=== PATIENT | female | born 1950 | race African-American/Black ===

== ENCOUNTER 2023-07-16 18:35 | Inpatient (IN) | payer MEDICARE ==
[~2023-07-16] VITALS: Ht 162.6 cm; Wt 62.3 kg
[2023-07-16 18:41] VITALS: O2SAT 97
[2023-07-16 19:31] LABS: CHLORIDE 92 mEq/L (98-107); POTASSIUM 5.3 mEq/L (3.5-5.1); SODIUM 131 mEq/L (136-145)
[2023-07-16 19:32] LABS: CALCIUM 9.2 mg/dL (8.7-10.4); CARBON DIOXIDE 28 mEq/L (21-32)
[2023-07-16 19:33] LABS: BASOPHILS % 0.6 % (0.0-2.0); DIFFERENTIAL COMMENT 0; HEMATOCRIT. 35.1 % (36.0-48.0); HEMOGLOBIN. 11.6 g/dL (12.0-16.0); LYMPHOCYTES % 26.7 % (20.0-50.0); MEAN CORPUSCULAR HGB CONC 33.1 g/dL (31.0-37.0); MEAN CORPUSCULAR VOLUME 93.6 fL (81.0-99.0); MEAN PLATELET VOLUME 7.6 fl (7.4-10.4); MONOCYTES % 13.8 % (2.0-8.0); NEUTROPHILS % 53.9 % (40.0-76.0); PLATELET 160 x1000/uL (130-400); RED BLOOD CELL COUNT 3.75 mill/uL (4.2-5.4); RED CELL DISTRIBUTION WIDTH 20.4 % (11.6-14.6); WHITE BLOOD COUNT 3.7 x1000/uL (4.5-11.0)
[2023-07-16 19:37] LABS: GLUCOSE 108 mg/dL (70-105); UREA NITROGEN BLOOD 47 mg/dL (9-23)
[2023-07-16 19:38] LABS: TROPONIN I HIGH SENSITIVITY 17 ng/L (3.0-34)
[2023-07-16 19:39] LABS: CREATININE 7.5 mg/dL (0.6-1.0)
[2023-07-16] MEDS: ACETAMINOPHEN 325MG TABLET PO ONE (23:13)
[2023-07-17] VITALS (11 sets, daily range): BP systolic 133–174; BP diastolic 58–81; PULSE 58–63; RESP 12–26; TEMP 98.2–98.4
[2023-07-17] MEDS: HYDRALAZINE 20MG/ML VIAL IV ONE (00:01)
[2023-07-17] MEDS ORDERED: IPRATROPIUM/ALBUTEROL 0.5-3(2.5)MG/3ML NEB HHN PRN (07:30)
[2023-07-17] MEDS ORDERED: DOCUSATE SODIUM 100MG CAPSULE PO PRN (07:30)
[2023-07-17] MEDS: PANTOPRAZOLE 40MG DR TABLET PO SCH (07:42)
[2023-07-17] MEDS: SEVELAMER CARBONATE 800 MG TABLET PO SCH (08:09)
[2023-07-17] MEDS: FOLIC ACID/VITAMIN B COMP W-C TABLET PO SCH (08:09)
[2023-07-17 08:17] LABS: HEPATITIS B SURFACE ANTIGEN NEGATIVE (Negative)
[2023-07-17] MEDS ORDERED: DEXTROSE 50% WATER 50ML SYRINGE IV PRN (08:30)
[2023-07-17] MEDS ORDERED: SERT25TA74 PO (08:35)
[2023-07-17] MEDS ORDERED: AMLO10TA80 PO (08:35)
[2023-07-17] MEDS ORDERED: CARV12.545 PO (08:35)
[2023-07-17 08:37] LABS: HEPATITIS A AB IGM NEGATIVE (Negative)
[2023-07-17 08:38] LABS: HEPATITIS B CORE AB IGM NEGATIVE (Negative); HEPATITIS C AB NON REACTIVE (Neg) (Negative)
[2023-07-17] MEDS ORDERED: SODIUM POLYSTYRENE SULFONATE 15 G/60 ML BOT PO ONE (08:45)
[2023-07-17] MEDS: ONDANSETRON HCL 4MG/2ML INJ IV NR (08:45)
[2023-07-17] MEDS ORDERED: AMLODIPINE 5MG TABLET PO SCH (09:00)
[2023-07-17] MEDS: CARVEDILOL 12.5MG TABLET PO SCH (09:09)
[2023-07-17] MEDS: AMLODIPINE 10MG TABLET PO SCH (09:09)
[2023-07-17] MEDS: SERTRALINE HCL 25MG TABLET PO SCH (09:09)
[2023-07-17] MEDS: SODIUM ZIRCONIUM CYCLOSILICATE 10GM/PACKET PO NR (09:30)
[2023-07-17] MEDS: INSULIN LISPRO 100 UNITS/ML SUBCUT SCH (12:15)
[2023-07-17] MEDS: BLOOD SUGAR DIAGNOSTIC STRIP TEST SCH (12:25)
[2023-07-17] MEDS: HYDRALAZINE 20MG/ML VIAL IV PRN (18:39)
[2023-07-17] MEDS: ACETAMINOPHEN 325MG TABLET PO PRN (21:07)
[2023-07-17] MEDS: ONDANSETRON HCL 4MG/2ML INJ IV PRN (21:07)
[2023-07-18] VITALS (22 sets, daily range): BP systolic 112–190; BP diastolic 51–69; PULSE 42–71; RESP 13–20; TEMP 97.7–98.4
[2023-07-18 07:40] LABS: BASOPHILS % 0.7 % (0.0-2.0); EOSINOPHILS % 4.3 % (0.0-5.0); HEMATOCRIT. 30.4 % (36.0-48.0); HEMOGLOBIN. 10.3 g/dL (12.0-16.0); LYMPHOCYTES % 26.2 % (20.0-50.0); MEAN CORPUSCULAR HEMOGLOBIN 30.9 pg (28.0-32.0); MEAN CORPUSCULAR HGB CONC 33.8 g/dL (31.0-37.0); MEAN CORPUSCULAR VOLUME 91.4 fL (81.0-99.0); MEAN PLATELET VOLUME 8.1 fl (7.4-10.4); MONOCYTES % 14.1 % (2.0-8.0); NEUTROPHILS % 54.7 % (40.0-76.0); PLATELET 126 x1000/uL (130-400); RED BLOOD CELL COUNT 3.32 mill/uL (4.2-5.4); RED CELL DISTRIBUTION WIDTH 20.1 % (11.6-14.6); WHITE BLOOD COUNT 4.3 x1000/uL (4.5-11.0)
[2023-07-18 07:45] LABS: POTASSIUM 5.7 mEq/L (3.5-5.1)
[2023-07-18 07:46] LABS: CALCIUM 9.2 mg/dL (8.7-10.4)
[2023-07-18] MEDS ORDERED: LIDOCAINE HCL 4% CREAM 76GM TUBE TP NR (11:00)
[2023-07-18] MEDS: LOSARTAN 25 MG TABLET PO SCH (14:08)
[2023-07-18 14:28] LABS: T4 FREE 1.05 ng/dL (0.89-1.76); THYROID STIMULATING HORMONE 1.02 uIU/mL (0.55-4.78)
[2023-07-18] MEDS: ATORVASTATIN CALCIUM 40MG TABLET PO SCH (21:29)
[2023-07-19] VITALS (7 sets, daily range): BP systolic 114–168; BP diastolic 33–63; PULSE 62–68; RESP 11–17; TEMP 97.3–98.6
[2023-07-19 12:07] LABS: POTASSIUM 4.5 mEq/L (3.5-5.1)
[2023-07-19 12:08] LABS: BASOPHILS % 0.6 % (0.0-2.0); CALCIUM 9.4 mg/dL (8.7-10.4); EOSINOPHILS % 5.4 % (0.0-5.0); HEMATOCRIT. 31.7 % (36.0-48.0); HEMOGLOBIN. 10.7 g/dL (12.0-16.0); LYMPHOCYTES % 24.3 % (20.0-50.0); MEAN CORPUSCULAR HEMOGLOBIN 30.7 pg (28.0-32.0); MEAN CORPUSCULAR HGB CONC 33.7 g/dL (31.0-37.0); MEAN CORPUSCULAR VOLUME 90.9 fL (81.0-99.0); MEAN PLATELET VOLUME 8.5 fl (7.4-10.4); MONOCYTES % 14.9 % (2.0-8.0); NEUTROPHILS % 54.8 % (40.0-76.0); PLATELET 143 x1000/uL (130-400); RED BLOOD CELL COUNT 3.49 mill/uL (4.2-5.4); RED CELL DISTRIBUTION WIDTH 20.1 % (11.6-14.6); WHITE BLOOD COUNT 4.1 x1000/uL (4.5-11.0)
[2023-07-19 12:26] LABS: CREATININE 7.4 mg/dL (0.6-1.0)
[2023-07-20] MEDS ORDERED: FAMOTIDINE 20MG TABLET PO SCH (06:00)
[2023-07-20 08:08] LABS: COMPLEMENT C3 76 mg/dL (82-167); COMPLEMENT C4 15 mg/dL (12-38)
== END 2023-07-19 11:52 | disposition left against medical advice (07) | DRG 604 ==
LOC: ER 18:35 → 5WST 23:33 → 5EST 07-17 13:30
PROVIDERS: ADMIT Internal Medicine; ATTEND Internal Medicine
PROC: 5A1D70Z Performance of Urinary Filtration, Intermittent, Less than 6 Hours Per Day (ICD-10-PCS; principal; 2023-07-17)
PROC: 5A1D70Z Performance of Urinary Filtration, Intermittent, Less than 6 Hours Per Day (ICD-10-PCS; 2023-07-18)
DX: S01.81XA Laceration without foreign body of other part of head, initial encounter (principal); I33.0 Acute and subacute infective endocarditis; N18.6 End stage renal disease; E87.1 Hypo-osmolality and hyponatremia; I13.2 Hypertensive heart and chronic kidney disease with heart failure and with stage 5 chronic kidney disease, or end stage renal disease; D63.8 Anemia in other chronic diseases classified elsewhere; E87.5 Hyperkalemia; Z99.2 Dependence on renal dialysis; E78.5 Hyperlipidemia, unspecified; Z53.29 Procedure and treatment not carried out because of patient's decision for other reasons; I50.9 Heart failure, unspecified; W19.XXXA Unspecified fall, initial encounter; Y93.89 Activity, other specified; Y92.89 Other specified places as the place of occurrence of the external cause; Y99.8 Other external cause status; F32.A Depression, unspecified; E11.22 Type 2 diabetes mellitus with diabetic chronic kidney disease; Z79.899 Other long term (current) drug therapy; Z91.158 Patient's noncompliance with renal dialysis for other reason
CPT/HCPCS: 36415; 71045; 80048; 80061; 82962; 83036; 83880; 84145; 84439; 84443; 84484; 85025; 86160; 86162; 86431; 86705; 86709; 87340; 90935; 93005; 93306; 93970; 99285; J0360; J1815; J2405

== ENCOUNTER 2023-08-08 14:16 | Emergency (ER) | payer MEDICARE, OTHER ==
[~2023-08-08] VITALS: Ht 162.6 cm; Wt 59.0 kg
[~2023-08-08 14:16] MED LIST: AMLO10TA80 PO; CARV12.545 PO; SERT25TA74 PO
[2023-08-08 14:25] VITALS: O2SAT 98
[2023-08-08 16:23] VITALS: BP 176/63; PULSE 59; RESP 16; TEMP 98.5
== END 2023-08-08 16:29 | disposition home or self-care (01) ==
LOC: ER 14:16
DX: S01.01XD Laceration without foreign body of scalp, subsequent encounter (principal); I12.0 Hypertensive chronic kidney disease with stage 5 chronic kidney disease or end stage renal disease; F19.90 Other psychoactive substance use, unspecified, uncomplicated; N18.6 End stage renal disease; Z88.0 Allergy status to penicillin; Z99.2 Dependence on renal dialysis; X58.XXXD Exposure to other specified factors, subsequent encounter
CPT/HCPCS: 99281; Z7610

== ENCOUNTER 2023-08-09 11:03 | Emergency (ER) | payer MEDICARE ==
[~2023-08-09] VITALS: Ht 162.6 cm; Wt 77.0 kg
[2023-08-09 11:12] VITALS: BP 165/54; PULSE 56; RESP 20; TEMP 98.3; O2SAT 98
== END 2023-08-09 11:27 | disposition home or self-care (01) ==
LOC: ER 11:03
DX: S01.91XD Laceration without foreign body of unspecified part of head, subsequent encounter (principal); I10 Essential (primary) hypertension; Z48.02 Encounter for removal of sutures; X58.XXXD Exposure to other specified factors, subsequent encounter
CPT/HCPCS: 99281